=== PATIENT | female | born 1955 | race Caucasian/White ===

== ENCOUNTER 2018-02-14 12:18 | Emergency (ER) | payer BC ==
[~2018-02-14] VITALS: Ht 167.6 cm; Wt 98.7 kg
[2018-02-14 12:20] VITALS: TEMP 37; Ht 167.6 cm; Wt 98.7 kg
[2018-02-14] MEDS ORDERED: ONDANSETRON INJ 2 MG/ML 2 ML VIAL IV STA (13:02)
[2018-02-14] MEDS ORDERED: KETOROLAC TROMETHAMINE 30 MG/ML VIAL IV STA (13:02)
[2018-02-14] MEDS ORDERED: SODIUM CHLORIDE 0.9% 1000ML 1,000 ML IV STA (13:02)
[2018-02-14] MEDS ORDERED: ASPIRIN 81 MG CHEW PO STA (13:02)
[2018-02-14 13:03] VITALS: O2SAT 99
[2018-02-14 13:14] LABS: BASO % 0.9 %; BASO ABS # 0.07 K/uL (0-0.2); EOS % 2.7 %; EOS ABS # 0.21 K/uL (0-0.5); HEMOGLOBIN 13.8 g/dL (12.0-16.0); IG# 0.01 K/uL (0.00-0.02); LYMPH % 38.6 %; LYMPH ABS # 3.03 K/uL (1.2-3.4); MEAN CELL VOLUME 82.8 fL (80-100); MEAN CORPUSCULAR HEMOGLOBIN 28.6 pg (25-34); MEAN CORPUSCULAR HGB CONC 34.5 g/dl (32-36); MEAN PLATELET VOLUME 9.9 fL (7.4-10.4); MONO % 9.6 %; MONO ABS # 0.75 K/uL (0.11-0.59); NEUT % 48.1 %; NEUT ABS # 3.77 K/uL (1.4-6.5); PLATELET COUNT 238 K/uL (130-400); RED CELL DISTRIBUTION WIDTH CV 12.9 % (11.5-14.5); RED CELL DISTRIBUTION WIDTH SD 39.2 fL (36.4-46.3); WHITE BLOOD COUNT 7.84 K/uL (4.8-10.8)
[2018-02-14] MEDS ORDERED: LIRA18IN SQ (13:18)
[2018-02-14] MEDS ORDERED: ATOR10TA82 PO (13:18)
[2018-02-14] MEDS ORDERED: CITA20TA9 PO (13:18)
[2018-02-14] MEDS ORDERED: NXM/40 PO (13:18)
[2018-02-14] MEDS ORDERED: LOSA100T65 PO (13:18)
[2018-02-14] MEDS ORDERED: CANA1TAB3 PO (13:18)
[2018-02-14] MEDS ORDERED: METF-384 PO (13:18)
[2018-02-14] MEDS ORDERED: NRV/10 PO (13:18)
[2018-02-14 13:28] LABS: ALBUMIN 4.1 gm/dl (3.4-5.0); ALT/SGPT 38 U/L (12-78); AST/SGOT 20 U/L (15-37); BLOOD UREA NITROGEN 16 mg/dl (7-18); CALCIUM 9.7 mg/dl (8.5-10.1); CARBON DIOXIDE 26 mmol/L (21-32); CREATININE 0.75 mg/dl (0.60-1.20); GLUCOSE 91 mg/dl (70-99); POTASSIUM 3.9 mmol/L (3.5-5.1); SODIUM 138 mmol/L (136-145)
[2018-02-14 13:29] LABS: PTT PATIENT 25.4 SECONDS (21.0-31.0)
[2018-02-14 13:39] LABS: ALKALINE PHOSPHATASE 64 U/L (45-117); TOTAL PROTEIN 8.2 gm/dl (6.4-8.2)
--- NOTE | 2018-02-14 13:52 | DIAGNOSTIC IMAGING REPORT ---
CHEST ONE VIEW PORTABLE CLINICAL HISTORY: 62 years-old Female presenting with EVALUATE ALTERED MENTAL STATUS/WEAKNESS, loss of consciousness, tachycardia. TECHNIQUE: Portable upright AP view of the chest was obtained. COMPARISON: None. FINDINGS: Atherosclerosis of the aortic arch. Cardiac silhouette normal in size. No focal opacity. No large effusion or pneumothorax. Osseous structures normal. IMPRESSION: 1. No acute cardiopulmonary disease. Electronically signed by: Jorden Sterling M.D. 02/14/2018 1:50 PM Dictated Date/Time: 02/14/2018 1:50 PM
[2018-02-14 17:20] VITALS: BP 132/74; PULSE 71; O2SAT 99
--- NOTE | 2018-02-14 19:18 | EMERGENCY ROOM VISIT NOTE ---
History Report prepared by Jeanne: Papito Reza Under the Supervision of: Dr. Darrick Bridges D.O. First contact with patient: 12:47 Chief Complaint: SYNCOPE Stated Complaint: BLACKED OUT, FAST HEART RATE, PAIN IN NECK History of Present Illness The patient is a 62 year old female who presents to the Emergency Room with complaints of a near-syncopal episode occurring two hours ago. She states that she was standing at work when she suddenly began feeling lightheaded. She states that she began experiencing heart palpitations and "everything went black ". The patient finally developed a "burning" pain up both sides of her neck, as well as a headache. She estimates that the episode lasted for about 10 minutes. She states that she was found to be tachycardic on scene. The patient has a history of tachycardia, but states that it usually would last few a few seconds at a time. Pt denies LOC, change in vision, numbness, weakness, fevers, chest pain, shortness of breath, abdominal pain, nausea, vomiting, diarrhea, pain with urination, and melena. Patient denies CAD, history of sudden at a young age, and smoking. She has a history of HTN, HLD, and diabetes. Patient denies swelling of calves, recent trips, history of immobilization or recent surgery, prior history of DVT, hemoptysis, history of malignancy, history of smoking, or control/estrogen use. Source of History: patient Onset: two hours ago Symptom Intensity: Episode lasted 10 minutes Quality: other (near syncope) Timing: other (episode) Associated Symptoms: + headache, + neck pain, No fevers, No chest pain, No SOB, No nausea, No vomiting, No abdominal pain, No melena, No diarrhea, No urinary symptoms Note: Positive: heart palpitations, lightheadedness. Negative: visual changes. Review of Systems See HPI for pertinent positives & negatives. A total of 10 systems reviewed and were otherwise negative. Past Medical & Surgical Medical Problems: (1) Diabetes type 2, controlled (2) HLD (hyperlipidemia) (3) HTN (hypertension) Family History No pertinent family history stated. Social History Smoking Status: Former Smoker Occupation Status: employed Current/Historical Medications Scheduled Amlodipine Besylate (Amlodipine Besylate), 10 MG PO DAILY Atorvastatin (Lipitor), 10 MG PO MWF Canagliflozin (Invokana), 300 MG PO DAILY Citalopram Hydrobromide (Celexa), 20 MG PO DAILY Esomeprazole Magnesium (Nexium), 40 MG PO DAILY Liraglutide (Victoza), 1.2 MG SQ DAILY Losartan Potassium (Cozaar), 100 MG PO DAILY Metformin Hcl (Glucophage), 1,000 MG PO BID Physical Exam Vital Signs Date Time Temp Pulse Resp B/P (MAP) Pulse Ox O2 Delivery O2 Flow Rate FiO2 02/14/18 17:20 71 18 132/74 99 Room Air 02/14/18 16:23 76 18 140/80 96 Room Air 02/14/18 13:57 71 18 132/86 96 Room Air 02/14/18 13:46 76 02/14/18 13:11 79 22 131/82 99 Room Air 83 135/81 85 130/89 02/14/18 13:03 99 Room Air 02/14/18 12:20 37.0 94 20 160/90 97 Room Air Physical Exam GENERAL: Sitting up in bed, alert, well appearing, well nourished, no distress, non-toxic EYE EXAM: normal conjunctiva. PERRL and EOM's intact. OROPHARYNX: no exudate, no erythema, lips, buccal mucosa, and tongue normal and mucous membranes are moist NECK: supple, no nuchal rigidity, no adenopathy, non-tender LUNGS: Clear to auscultation. Normal chest wall mechanics HEART: no murmurs, S1 normal and S2 normal ABDOMEN: abdomen soft, non-tender, normo-active bowel sounds, no masses, no rebound or guarding. BACK: Back is symmetrical on inspection and there is no deformity, no midline tenderness, no CVA tenderness. SKIN: no rashes and no bruising UPPER EXTREMITIES: upper extremities are grossly normal. LOWER EXTREMITIES: No pitting edema. NEURO EXAM: Normal sensorium, cranial nerves II-XII intact, normal speech, no weakness of arms, no weakness of legs. No drift. Finger to nose intact. Gross sensation intact. Medical Decision & Procedures ER Provider Diagnostic Interpretation: Radiology results as stated below per my review and the radiologist's interpretation: CHEST ONE VIEW PORTABLE FINDINGS: Atherosclerosis of the aortic arch. Cardiac silhouette normal in size. No focal opacity. No large effusion or pneumothorax. Osseous structures normal. IMPRESSION: 1. No acute cardiopulmonary disease. Electronically signed by: Jorden Sterling M.D. 02/14/2018 1:50 PM Laboratory Results 02/14/18 13:00 Red Blood Count 4.83, Mean Corpuscular Volume 82.8, Mean Corpuscular Hemoglobin 28.6, Mean Corpuscular Hemoglobin Concent 34.5, Mean Platelet Volume 9.9, Neutrophils (%) (Auto) 48.1, Lymphocytes (%) (Auto) 38.6, Monocytes (%) (Auto) 9.6, Eosinophils (%) (Auto) 2.7, Basophils (%) (Auto) 0.9, Neutrophils # (Auto) 3.77, Lymphocytes # (Auto) 3.03, Monocytes # (Auto) 0.75, Eosinophils # (Auto) 0.21, Basophils # (Auto) 0.07 02/14/18 13:00 Test 02/14/18 13:00 02/14/18 13:08 02/14/18 13:25 02/14/18 15:51 White Blood Count 7.84 K/uL (4.8-10.8) Red Blood Count 4.83 M/uL (4.2-5.4) Hemoglobin 13.8 g/dL (12.0-16.0) Hematocrit 40.0 % (37-47) Mean Corpuscular Volume 82.8 fL (80-100) Mean Corpuscular Hemoglobin 28.6 pg (25-34) Mean Corpuscular Hemoglobin Concent 34.5 g/dl (32-36) Platelet Count 238 K/uL (130-400) Mean Platelet Volume 9.9 fL (7.4-10.4) Neutrophils (%) (Auto) 48.1 % Lymphocytes (%) (Auto) 38.6 % Monocytes (%) (Auto) 9.6 % Eosinophils (%) (Auto) 2.7 % Basophils (%) (Auto) 0.9 % Neutrophils # (Auto) 3.77 K/uL (1.4-6.5) Lymphocytes # (Auto) 3.03 K/uL (1.2-3.4) Monocytes # (Auto) 0.75 K/uL (0.11-0.59) Eosinophils # (Auto) 0.21 K/uL (0-0.5) Basophils # (Auto) 0.07 K/uL (0-0.2) RDW Standard Deviation 39.2 fL (36.4-46.3) RDW Coefficient of Variation 12.9 % (11.5-14.5) Immature Granulocyte % (Auto) 0.1 % Immature Granulocyte # (Auto) 0.01 K/uL (0.00-0.02) Prothrombin Time 10.3 SECONDS (9.0-12.0) Prothromb Time International Ratio 1.0 (0.9-1.1) Activated Partial Thromboplast Time 25.4 SECONDS (21.0-31.0) Partial Thromboplastin Ratio 1.0 D-Dimer 470 ug/L FEU (0-500) Anion Gap 7.0 mmol/L (3-11) Est Creatinine Clear Calc Drug Dose 92.1 ml/min Estimated GFR () 99.0 Estimated GFR (Non- 85.4 BUN/Creatinine Ratio 20.8 (10-20) Calcium Level 9.7 mg/dl (8.5-10.1) Total Bilirubin 0.4 mg/dl (0.2-1) Direct Bilirubin 0.1 mg/dl (0-0.2) Aspartate Amino Transf (AST/SGOT) 20 U/L (15-37) Alanine Aminotransferase (ALT/SGPT) 38 U/L (12-78) Alkaline Phosphatase 64 U/L (45-117) Total Protein 8.2 gm/dl (6.4-8.2) Albumin 4.1 gm/dl (3.4-5.0) Thyroid Stimulating Hormone (TSH) 0.957 uIu/ml (0.300-4.500) Bedside Glucose 86 mg/dl (70-90) Urine Color YELLOW Urine Appearance CLEAR (CLEAR) Urine pH 7.5 (4.5-7.5) Urine Specific [place] 1.014 (1.000-1.030) Urine Protein NEG (NEG) Urine Glucose (UA) 3+ (NEG) Urine Ketones NEG (NEG) Urine Occult Blood NEG (NEG) Urine Nitrite NEG (NEG) Urine Bilirubin NEG (NEG) Urine Urobilinogen NEG (NEG) Urine Leukocyte Esterase NEG (NEG) Troponin I < 0.015 ng/ml (0-0.045) Laboratory results per my review. Medications Administered Medications (Trade) Dose Ordered Sig/Quin Route Start Time Stop Time Status Last Admin Dose Admin Sodium Chloride 1,000 ml @ 999 mls/hr Q1H1M STAT IV 02/14/18 13:02 02/14/18 14:02 DC 02/14/18 13:23 999 MLS/HR Ondansetron HCl (Zofran Inj) 4 mg NOW STAT IV 02/14/18 13:02 02/14/18 13:05 DC 02/14/18 13:24 4 MG Aspirin (Aspirin Chew) 324 mg NOW STAT PO 02/14/18 13:02 02/14/18 13:05 DC 02/14/18 13:24 324 MG Ketorolac Tromethamine (Toradol Inj) 30 mg NOW STAT IV 02/14/18 13:02 02/14/18 13:05 DC 02/14/18 13:24 30 MG ECG Per My Interpretation Indication: syncope (near) Rate (beats per minute): 88 Rhythm: sinus rhythm Findings: other (Normal axis. No PVCs. ) ED Course ED COURSE: Vital signs were reviewed and showed hypertension. The patients medical record was reviewed The above diagnostic studies were performed and reviewed. ED treatments and interventions as stated above. 1256: The patient was evaluated in room C10. A complete history and physical examination was performed. 1302: Ordered Toradol Inj 30 mg IV, Aspirin Chew 324 mg PO, Zofran Inj 4 mg IV, Sodium Chloride 1000 ml @ 999 mls/hr IV. 1706: Upon reevaluation, the patient is resting comfortably. I discussed my findings with the patient and she understands and agrees with the treatment plan. Based on the patients age, coexisting illnesses, exam and lab findings the decision to treat as an outpatient was made. The patient remained stable while under my care. The patient appeared well at the time of discharge. Medical Decision Differential diagnosis includes etiologies such as benign positional vertigo, dehydration, hypovolemia, anemia, tumor, infection, hypoglycemia, electrolyte abnormalities, cardiac sources, intracerebral event, toxicologic, neurologic, as well as others were entertained. Patient is a 62-year-old female who presents the ER for feeling lightheaded, and dizzy along with her vision going black and almost passing out. She never fell. Following this she did have some tightness in the upper portion of her neck. She denies any chest pain or shortness of breath. She is completely neurologically intact. CBC along with BMP, LFTs, bilirubin and TSH was unremarkable. Troponins were negative 2. UA was negative. D-dimer was negative. EKG was unremarkable. Patient was completely symptomatic while in the ER. She was given fluids and felt significantly better. Uncertain of the true etiology of this near syncopal episode at this time. There is no arrhythmias called while in the ER. Patient was updated at bedside. She was discharged follow-up with PCP as outpatient. Discussed with Pt concerning signs and symptoms to watch out for. Pt was instructed to follow up with their PCP and discussed with the patient their option to return to the ED at anytime for persistent or worsening symptoms. The appropriate anticipatory guidance and out- patient management, including indications for return to the emergency department , were explained at length to the patient and understood. Medication Reconcilliation Current Medication List: was personally reviewed by me Blood Pressure Screening Patient's blood pressure: Elevated blood pressure Blood pressure disposition: Elevated BP felt to be situational Impression Primary Impression: Near syncope Scribe Attestation The scribe's documentation has been prepared under my direction and personally reviewed by me in its entirety. I confirm that the note above accurately reflects all work, treatment, procedures, and medical decision making performed by me. Departure Information Dispostion Home / Self-Care Forms HOME CARE DOCUMENTATION FORM, IMPORTANT VISIT INFORMATION Patient Instructions ED Near Syncope Unkn, My [facility] Additional Instructions Please follow up with your primary care doctor with in the next 24 hours. Any worsening of your symptoms, please return to the ED immediately. This includes any fevers greater than 100.4, worsening pain, chest pain, shortness breath, persistent nausea, vomiting, unable to eat or drink, or any other concerning signs or symptoms from your standpoint.
== END 2018-02-14 17:37 | disposition home or self-care (01) ==
LOC: C.EDB 12:20 → C.EDC 17:37
DX: R55 Syncope and collapse (principal); E11.9 Type 2 diabetes mellitus without complications; E78.5 Hyperlipidemia, unspecified; I10 Essential (primary) hypertension; Z87.891 Personal history of nicotine dependence

== ENCOUNTER 2022-11-01 06:06 | Observation (INO) ==
--- NOTE | 2022-10-04 12:07 | PAT Medication Instructions ---
Medication Instructions Date of Service October 04, 2022 Home Medications aspirin 81 mg tablet,delayed release (Adult Low Dose Aspirin) 81 mg PO QAM atorvastatin 10 mg tablet 20 mg PO HS buspirone 15 mg tablet 15 mg PO QAM cholecalciferol (vitamin D3) 125 mcg (5,000 unit) capsule 5,000 units PO HS cinnamon bark 500 mg capsule (Cinnamon) 500 mg PO HS citalopram 20 mg tablet 20 mg PO QAM esomeprazole magnesium 40 mg granules delayed release for susp 40 mg PO HS liraglutide 0.6 mg/0.1 mL (18 mg/3 mL) subcutaneous pen injector (Victoza 3-Tariq) 18 mg subcut QAM losartan 100 mg tablet 100 mg PO HS metoprolol tartrate 25 mg tablet 25 mg PO BID multivitamin (Multiple Vitamins tablet) 1 tab PO HS sitagliptin phosphate 50 mg tablet (Januvia) 50 mg PO BID amlodipine 10 mg tablet 10 mg PO HS vitamin B complex 1 tab PO HS ASK your prescriber and surgeon aspirin 81 mg tablet,delayed release (Adult Low Dose Aspirin) 81 mg PO QAM STOP taking 2 weeks before surgery cinnamon bark 500 mg capsule (Cinnamon) 500 mg PO HS DO NOT take the morning of surgery liraglutide 0.6 mg/0.1 mL (18 mg/3 mL) subcutaneous pen injector (Victoza 3-Tariq) 18 mg subcut QAM sitagliptin phosphate 50 mg tablet (Januvia) 50 mg PO BID Take morning of surgery With a small sip of water, OTHERWISE NOTHING TO EAT OR DRINK AFTER MIDNIGHT: buspirone 15 mg tablet 15 mg PO QAM citalopram 20 mg tablet 20 mg PO QAM metoprolol tartrate 25 mg tablet 25 mg PO BID Take evening before surgery atorvastatin 10 mg tablet 20 mg PO HS cholecalciferol (vitamin D3) 125 mcg (5,000 unit) capsule 5,000 units PO HS esomeprazole magnesium 40 mg granules delayed release for susp 40 mg PO HS losartan 100 mg tablet 100 mg PO HS metoprolol tartrate 25 mg tablet 25 mg PO BID multivitamin (Multiple Vitamins tablet) 1 tab PO HS sitagliptin phosphate 50 mg tablet (Januvia) 50 mg PO BID amlodipine 10 mg tablet 10 mg PO HS vitamin B complex 1 tab PO HS Other Notes If you have any questions please call us at [phone] or [phone] or [phone] or [phone]
--- NOTE | 2022-10-10 09:24 | Anesthesiology Consultation ---
Date of Service October 10, 2022 Assessment & Plan (1) Encounter for pre-operative examination: Chart Review Chart Review: Acceptable Risk for Surgery (pending UA results, PCP clearance (10/22/22), cardio clearance (had done last week) and 05/2021 stress test ) Awaiting UA. [facility]- will take urine specimen to [place] Awaiting PCP clearance (10/22/22) and cardio clearance ([facility]- appt last week) (Please fax for stress test results from 06/01/21) - Check BSG AM DOS Per [facility] appt on 10/10/22, patient denies any recent travel or large group activities. Cough and congestion x 2 weeks- improving. No Covid testing done previously- [facility] negative. Pt is vaccinated for Covid. Educated on importance of using Covid precautions one week prior to surgery History Surgery Operation Date: 11/01/22 12:55 Proposed Procedures p C4-5 Anterior Cervical Disectomy and Fusion, C6 Corpectomy, Spinal Cord Monitoring - Kwame Crowder, Height/Weight Height: 5 ft 6 in Weight: 109.5 kg Allergies Allergy/AdvReac Type Severity Reaction Status Date / Time glipizide AdvReac Unknown "unsure of Verified 09/30/22 15:17 reaction" hydrochlorothiazide AdvReac Unknown "unsure of Verified 09/30/22 15:17 reaction" meloxicam AdvReac Unknown "unsure of Verified 09/30/22 15:17 reaction" Medications Home Medications Medication Instructions Recorded Confirmed Last Taken aspirin 81 mg tablet,delayed 81 mg PO QAM 09/13/19 09/30/22 Unknown release (Adult Low Dose Aspirin) atorvastatin 10 mg tablet 20 mg PO HS 09/13/19 09/30/22 Unknown buspirone 15 mg tablet 15 mg PO QAM 09/13/19 09/30/22 Unknown cholecalciferol (vitamin D3) 125 5,000 units PO HS 09/13/19 09/30/22 Unknown mcg (5,000 unit) capsule cinnamon bark 500 mg capsule 500 mg PO HS 09/13/19 09/30/22 Unknown (Cinnamon) citalopram 20 mg tablet 20 mg PO QAM 09/13/19 09/30/22 Unknown esomeprazole magnesium 40 mg 40 mg PO HS 09/13/19 09/30/22 Unknown granules delayed release for susp liraglutide 0.6 mg/0.1 mL (18 mg/3 18 mg subcut QAM 09/13/19 09/30/22 Unknown mL) subcutaneous pen injector (Victoza 3-Tariq) losartan 100 mg tablet 100 mg PO HS 09/13/19 09/30/22 Unknown metoprolol tartrate 25 mg tablet 25 mg PO BID 09/13/19 09/30/22 Unknown multivitamin (Multiple Vitamins 1 tab PO HS 09/13/19 09/30/22 Unknown tablet) sitagliptin phosphate 50 mg tablet 50 mg PO BID 11/18/20 09/30/22 Unknown (Januvia) amlodipine 10 mg tablet 10 mg PO HS 09/30/22 09/30/22 Unknown vitamin B complex 1 tab PO HS 09/30/22 09/30/22 Unknown Past Medical History Medical History (Updated 10/11/22 @ 09:29 by Cici Donohue PA-C) CAD (coronary artery disease) S/p angioplasty and 2 vessel CABG (2018) Cervical radiculopathy Diabetes mellitus, type 2 Glucose elevated currently per patient History of cardiac murmur as a child Resolved during adulthood No murmur noted on 10/10/22 PAT exam History of paroxysmal supraventricular tachycardia Per records Hx of migraines Hyperlipidemia Hypertension Knee arthropathy Myocardial Infarction 2018- s/p angioplasty initial- had CABG next day - follows with [facility] Sleep apnea No device Exercise / Class Metabolic Activity III < 4 Walking/Shop/Light housework (no chest pain or SOB with flat surface ambulation - back/leg pain limits activity ) Past Family History Family History Father Cardiac disorder Diabetes Kidney disease Mother Diabetes Daughter Connective tissue disorder EDS (Mateo-Danlos syndrome) Past Surgical History Surgical History History of coronary artery bypass graft 2018, [facility], double bypass; f/u [facility] Hx of hysterectomy w/removal of one ovary and tube Hx of wisdom tooth extraction S/P appendectomy S/P breast biopsy S/P carpal tunnel release RT S/P section x3 S/P cholecystectomy S/P colonoscopy x2 S/P rotator cuff repair RT Past Anesthesia History No Hx of Anesthesia Complications and No Family Hx of Anesthesia Complications History of PONV No Hx of PONV and No Hx of Motion Sickness Social History Smoking Status: Former smoker Do You Dip or Chew Tobacco: No Smoking End Date: "just here and there as a teenager, none since" Hx Alcohol Use: No Hx Substance Use: No substance use type: does not use Review of Systems Current cough- improving. Recent cold symptoms Reflux- well controlled with meds Patient denies chest pain, shortness of breath, dyspnea on exertion, wheezing, palpitations. No hx of seizures, stroke. No hx of blood clots or blood transfusions Physical Exam Vital Signs VITALS BP 131/79 P 77 TEMP 98.4 SP02 97% RESP 16 Constitutional no acute distress ENMT Mouth: no TMJ clicking Thyromental Distance: < 3.5 Finger Breadths (2.5) Mallampati Class: III Missing molars Crowns to molars Neck + limited neck extension (significant ) Respiratory normal respiratory effort; no respiratory distress Auscultation: lungs clear to auscultation bilaterally; no wheezes Cardiovascular Rate/Rhythm: regular rate and regular rhythm Heart Sounds: no murmur Vessels: no carotid bruit Musculoskeletal Spine: no pain with cervical ROM Extremities: extremities normal to inspection Psychiatric Orientation: alert Lab Results Anesthesia Preop Results Results Anesthesia Widget: WBC 8.95 K/ul (4.8-10.8) 10/10/22 Hgb 13.0 g/dl (12.0-16.0) 10/10/22 Hct 38.3 % (34.1-44.9) 10/10/22 Plt 233 K/uL (130-400) 10/10/22 Na 138 mmol/L (136-145) 10/10/22 K 4.7 mmol/L (3.5-5.1) 10/10/22 Cl 103 mmol/L (98-107) 10/10/22 CO2 24 mmol/L (21-32) 10/10/22 BUN 19 mg/dl (6-23) 10/10/22 Creat 0.81 mg/dl (0.6-1.2) 10/10/22 Glucose Level 204 mg/dl (70-99(Fasting)) H 10/10/22 PT 11.2 Seconds (9.0-12.0) 10/10/22 PTT 27.0 Seconds (21.0-31.0) 10/10/22 INR 1.1 (0.9-1.1) 10/10/22 HA1c 8.3 % (4.5-5.6) H 10/10/22 Blood Type A Negative 10/10/22 Antibody Screen NEGATIVE 10/10/22 Testing Electrocardiogram Date: 10/10/22 Findings: + NSR @ (77bpm) Normal EKG per cardio. Chest X-Ray Date: 10/10/22 Findings: + NAD Echocardiogram Date: 03/26/20 EF: 60% LV Function: normal Other Findings: + diastolic dysfunction (Grade I ); no LVH Valvular Disease: + no significant valvular disease LA mildly dilated Cardiac Catheterization Date: 04/02/18 LAD mid 90% stenosis RCA mid/distal 90% stenosis LCx mid 40% stenosis. (Pt had subsequent CABG) COVID-19 Risk Screen Screening Information COVID-19 Screen Date: 10/10/22 Exposure 21 Days Family/Household +COVID Last 21 Days: No Exposure 10 Days Any COVID Exposure Last 10 Days: No Symptoms Last 10 Days Experienced COVID Sx Last 10 Days: Yes Sx Experienced Last 10 Days: Congestion/Runny Nose and Cough Were You Tested for COVID: No + COVID 0-90 Days COVID + in Last 0-90 Days: No COVID Testing Site COVID-19 Preop/Pre-Procedure Testing Site: [facility] (10/10/22 at PAT appt= negative for Covid ) Risk Plan COVID Risk Plan: Last 10D CoV Sx Patient Education COVID Preop Screening Education Complete: Yes
[~2022-11-01 06:06] MED LIST: ACETAMINOPHEN 500 MG TAB PO SCH; CeleBREX 200 MG CAP PO SCH; GABAPENTIN 300 MG CAP PO SCH; LR 15ML/HR IV SCH; ceFAZolin 2000MG 2,000 MG/15 ML SYR IV SCH
[2022-11-01] MEDS ORDERED: LIDOCAINE 2% 20 MG/ML 5 ML SYR IV ONE (07:08)
[2022-11-01] MEDS ORDERED: PROPOFOL IV EMULSION 10 MG/ML 20 ML VIAL IV ONE ×3 (07:08→09:03)
[2022-11-01] MEDS ORDERED: ONDANSETRON INJ 2 MG/ML 2 ML VIAL ONE (07:08)
[2022-11-01] MEDS ORDERED: fentaNYL citrate 100 MCG/2 ML VIAL ONE ×2 (07:08→08:30)
[2022-11-01] MEDS ORDERED: MIDAZOLAM HCL 1 MG/ML 2ML VIAL ONE (07:08)
[2022-11-01] MEDS ORDERED: ROCURONIUM BROMIDE 10 MG/ML 5 ML VIAL IV ONE ×5 (07:08→08:56)
[2022-11-01] MEDS ORDERED: DEXAMETHASONE SOD INJ 4 MG/ML VIAL ONE (07:08)
[2022-11-01] MEDS ORDERED: ceFAZolin 330 MG/ML 1 GM VIAL ONE (07:12)
[2022-11-01] MEDS ORDERED: BUPIVACAINE/EPINEPHRINE 0.25% 1:200,000 30 ML VIAL ONE (07:12)
--- NOTE | 2022-11-01 07:31 | History & Physical Bridge Note ---
Date of Service November 01, 2022 History & Physical Bridge Note I have examined the patient, reviewed the History & Physical and in the interval since the performance of the History & Physical I have noted the following changes of clinical significance: no changes noted
[2022-11-01] MEDS ORDERED: PROMETHAZINE HCL 12.5 MG in SODIUM CHLORIDE 0.9% 50 ML IV PRN ×2 (07:32→11:14)
[2022-11-01] MEDS ORDERED: ePHEDrine sulfate 50 MG/ML AMP IV PRN (07:32)
[2022-11-01] MEDS ORDERED: HYDROmorphone INJ 1 MG/ML SYRINGE IV PRN ×2 (07:32→11:14)
[2022-11-01] MEDS ORDERED: LABETALOL HCL IV 5 MG/ML 20ML IV PRN (07:32)
[2022-11-01] MEDS ORDERED: FLUMAZENIL 0.1 MG/1 ML 10 ML VIAL IV PRN (07:32)
[2022-11-01] MEDS ORDERED: ATROPINE SULFATE 0.1 MG/ML 10ML SYR IV PRN (07:32)
[2022-11-01] MEDS ORDERED: ONDANSETRON INJ 2 MG/ML 2 ML VIAL IV PRN ×2 (07:32→11:14)
[2022-11-01] MEDS ORDERED: NALOXONE HCL 0.4 MG/1 ML VIAL/CARP IV PRN ×2 (07:32→11:14)
--- NOTE | 2022-11-01 07:32 | History & Physical Report ---
Date of Service November 01, 2022 Assessment & Plan (1) Cervical stenosis of spinal canal: Plan: Anterior cervical discectomy and fusion C4-C5, cervical C6 corpectomy. History of Present Illness Chief Complaint: Neck and arm pain Primary Care Provider: Valentina Ivy This is a 66-year-old female who presents for persistent neck and arm symptoms from course of nonoperative care she is here for surgical invention. Allergies Allergy/AdvReac Type Severity Reaction Status Date / Time glipizide AdvReac Unknown "unsure of Verified 11/01/22 06:31 reaction" hydrochlorothiazide AdvReac Unknown "unsure of Verified 11/01/22 06:31 reaction" meloxicam AdvReac Unknown "unsure of Verified 11/01/22 06:31 reaction" Home Medications Medication Instructions Recorded Confirmed Type aspirin 81 mg tablet,delayed 81 mg PO QAM 09/13/19 11/01/22 History release (Adult Low Dose Aspirin) atorvastatin 10 mg tablet 20 mg PO HS 09/13/19 11/01/22 History buspirone 15 mg tablet 15 mg PO QAM 09/13/19 11/01/22 History cholecalciferol (vitamin D3) 125 5,000 units PO HS 09/13/19 11/01/22 History mcg (5,000 unit) capsule cinnamon bark 500 mg capsule 500 mg PO HS 09/13/19 11/01/22 History (Cinnamon) citalopram 20 mg tablet 20 mg PO QAM 09/13/19 11/01/22 History esomeprazole magnesium 40 mg 40 mg PO HS 09/13/19 11/01/22 History granules delayed release for susp liraglutide 0.6 mg/0.1 mL (18 mg/3 18 mg subcut QAM 09/13/19 11/01/22 History mL) subcutaneous pen injector (Victoza 3-Tariq) losartan 100 mg tablet 100 mg PO HS 09/13/19 11/01/22 History metoprolol tartrate 25 mg tablet 25 mg PO BID 09/13/19 11/01/22 History multivitamin (Multiple Vitamins 1 tab PO HS 09/13/19 11/01/22 History tablet) sitagliptin phosphate 50 mg tablet 50 mg PO BID 11/18/20 11/01/22 History (Januvia) amlodipine 10 mg tablet 10 mg PO HS 09/30/22 11/01/22 History vitamin B complex 1 tab PO HS 09/30/22 11/01/22 History Past Med/Surg History Medical History (Updated 11/01/22 @ 07:32 by Kwame Crowder DO) CAD (coronary artery disease) S/p angioplasty and 2 vessel CABG (2018) Cervical radiculopathy Diabetes mellitus, type 2 Glucose elevated currently per patient History of cardiac murmur as a child Resolved during adulthood No murmur noted on 10/10/22 PAT exam History of paroxysmal supraventricular tachycardia Per records Hx of migraines Hyperlipidemia Hypertension Knee arthropathy Myocardial Infarction 2018- s/p angioplasty initial- had CABG next day - follows with [facility] Sleep apnea No device Surgical History History of coronary artery bypass graft 2018, [facility] [place], double bypass; f/u [facility] Hx of hysterectomy w/removal of one ovary and tube Hx of wisdom tooth extraction S/P appendectomy S/P breast biopsy S/P carpal tunnel release RT S/P section x3 S/P cholecystectomy S/P colonoscopy x2 S/P rotator cuff repair RT Family History Father Cardiac disorder Diabetes Kidney disease Mother Diabetes Daughter Connective tissue disorder EDS (Mateo-Danlos syndrome) Social History Smoking Status: Former smoker Smoking End Date: "just here and there as a teenager, none since"; Second Hand Exposure: No; Do You Dip or Chew Tobacco: No; Tobacco Cessation Education Requested by Patient: No Hx Alcohol Use: Yes Hx Substance Use: No Preferred Language: Latvian Communication Ability: Effective Senior Staff Psychologist Required: No Beliefs That Will Affect Care: None Current Living Situation: Spouse and Family Other Information That Helps Us Care for You: No Feels Safe at Home: Yes Safety Concerns: Feels Safe At This Time Assistive Devices: Glasses Physical Exam Physical Exam: Patient is alert and oriented Heart regular rhythm Lungs clear Results & Data Results & Data ([facility]) Vital Signs (Past 12 Hours) Vital Signs Temp Pulse Resp BP Pulse Ox O2 Del Method 11/01/22 06:25 36.8 C 78 20 125/83 97 Room Air
[2022-11-01] MEDS ORDERED: FLOSEAL HEMOSTATIC MATRIX 10ML TOP ONE (08:31)
[2022-11-01] MEDS ORDERED: GLYCOPYRROLATE 0.2 MG/ML VIAL ONE (08:57)
[2022-11-01] MEDS ORDERED: NEOSTIGMINE METHYLSULFATE 1 MG/ML 10ML VIAL ONE (08:57)
--- NOTE | 2022-11-01 09:42 | Operative Report ---
Post Operative Report Pre & Post Diagnosis Operation Date: 11/01/22 07:45 Pre-Op Diagnosis: Cervical spinal stenosis with myeloradiculopathy Post-Op Diagnosis: Same I identified the patient and participated in the time-out.: Yes Procedure Operation Date: 11/01/22 07:45 Actual Procedures #1 anterior cervical corpectomy with bilateral foraminotomies C6. #2 anterior cervical discectomy with bilateral foraminotomies C4-C5. #3 anterior cervical arthrodesis C4-C5 and C5-C7. #4 placement of peek cage 7 mm in height at C4-C5 and 25 mm in height at C5-C7. #5 placement locally harvested morselized autograft combined with I factor antibody cage. #6 placement of K2 M plate and screws from c 4 to C7. Surgeon Kwame Crowder, Record Retrieval Specialist Maribell Stokes Estimated Blood Loss 10 Findings See Below The patient is 5 foot 6 weighing over 110 kg with a BMI in excess of 38. The patient is body habitus did create significant technical difficulty with positioning exposure at least 50% increased operative time. Specimens None Indications This is a 66-year-old female who presents above-mentioned diagnosis after failing course of nonoperative care she is here for surgical invention. Description of Procedure Patient was met with identified informed consent obtained. Patient was then taken to the operative suite underwent a patient placed in a supine position Rashid table with head Robertson smiley. All bony prominences well-padded eyes inspected to ensure no external pressure placed upon the. This point the anterior cervical spine was prepped and draped in a sterile fashion. The assistance of fluoroscopy identified the C5-C6 disc base and a transverse incision was placed along the right anterior aspect of the cervical spine overlying this region. Blunt dissection with assistance of bipolar cautery was then performed down to and exposing the anterior cervical spine from C4-C7. A self-retaining retractors placed. Then formed a complete discectomy of C5-C6 out to the uncovertebral joints bilaterally followed by C6-C7. [place] distracting pins were then placed and see 5 and see 7 to distract across the C6 vertebral body. A complete corpectomy was then performed including removal of all posterior annular fibers longitudinal ligament bilateral foraminotomies. Endplates burred to subcortical bleeding bone and a 25 mm peek cage filled locally harvested morselized autograft and I factor tapped in position. Then proceeded to the C4-C5 again complete discectomy performed out to the uncovertebral joints bilaterally. [place] distractor pins again utilized for visualization. Removed all posterior annular fibers and longitudinal ligament bilateral foraminotomies performed. Endplates burred to subcortically bone and a 7 mm peek cage filled with I factor and locally harvested morselized autograft tapped in position. Distracting apparatus was removed. All anterior osteophytes produce with cortical surface and a K2 M plate and screws applied with the assistance of fluoroscopy. The incision was then copiously irrigated explored to ensure no damage to surrounding structures remaining bleeding. 10 round LARISA drain inserted. The incision was then closed with 2 Vicryl in the fascia and 4 Monocryl for fascial closure. Steri-Strips dressings placed. Patient waken taken to PACU in stable condition. Please note spinal cord monitoring was utilized at the procedure no changes noted. Lastly Maribell Stokes was present at the entire surgery and while the patient positioning complex portions of the surgery and fascial closure. I attest to the content of the Intraoperative Record and any orders documented therein. Any exceptions are noted below.
[2022-11-01] MEDS: fentaNYL citrate 100 MCG/2 ML VIAL IV PRN ×2 (10:40→10:45)
--- NOTE | 2022-11-01 10:48 | Fluoroscopy Report ---
FL cervical 2-3V CLINICAL HISTORY: C4-C5 ACDF, C6 corpectomy COMPARISON STUDY: None. FLUOROSCOPY TIME: 10 seconds. FINDINGS: 2 fluoroscopic spot images of the cervical spine demonstrate anterior cervical discectomy a nd fusion from C4 through C7 with C6 corpectomy and bone graft. The hardware appears intact. IMPRESSION: Fluoroscopic assistance provided for C4-C7 ACDF. ACT 112: Negative or not required by law. Electronically signed by: Peewee Goncalves M.D. 11/01/2022 10:46 AM
--- NOTE | 2022-11-01 11:07 | Anesthesiology Progress Note ---
Date of Service November 01, 2022 Anesthesia Post Procedure Vital Signs Vital Signs: Temp Pulse Pulse Resp BP Pulse Ox O2 Del Method 11/01/22 11:00 36.4 C L 11/01/22 10:50 74 15 136/67 96 Nasal Cannula 11/01/22 10:40 36.4 C L 75 15 136/67 98 Nasal Cannula 11/01/22 10:30 75 15 143/66 H 97 Nasal Cannula 11/01/22 10:20 72 17 141/72 H 98 Nasal Cannula 11/01/22 10:10 72 16 139/76 98 Nasal Cannula 11/01/22 10:00 71 16 138/75 97 Nasal Cannula 11/01/22 09:51 36.0 C L 79 13 158/86 H 98 Nasal Cannula 11/01/22 06:25 36.8 C 78 20 125/83 97 Room Air O2 Flow Rate 11/01/22 11:00 11/01/22 10:50 2 11/01/22 10:40 2 11/01/22 10:30 4 11/01/22 10:20 4 11/01/22 10:10 4 11/01/22 10:00 4 11/01/22 09:51 4 11/01/22 06:25 Transfer of Care Handoff Completed per policy Notes Mental Status: alert / awake / arousable Patient Amnestic to Procedure: Yes Nausea / Vomiting: adequately controlled Pain: adequately controlled Airway Patency, RR, SpO2: stable & adequate BP & HR: stable & adequate Hydration State: stable & adequate Anesthetic Complications: no major complications apparent
[2022-11-01] MEDS ORDERED: ONDANSETRON 4 MG OD TAB PO PRN (11:14)
[2022-11-01] MEDS ORDERED: bisacodyL 10 MG SUPP PR PRN (11:14)
[2022-11-01] MEDS ORDERED: ALUMINUM/MAGNESIUM SUSP 30 ML UDC PO PRN (11:14)
[2022-11-01] MEDS ORDERED: HYDROmorphone INJ 0.5 MG/0.5 ML SYR IV PRN (11:14)
[2022-11-01] MEDS ORDERED: ACETAMINOPHEN 1,000 MG/100 ML VIAL IV PRN (11:14)
[2022-11-01] MEDS ORDERED: DO NOT ADMINISTER FLU VACCINE PRN (11:14)
[2022-11-01] MEDS ORDERED: oxyCODONE HCL IR 5 MG TAB (IMMEDIATE RELEASE) PO PRN (11:14)
[2022-11-01] MEDS ORDERED: FAMOTIDINE 20 MG TAB PO PRN (11:14)
[2022-11-01] MEDS ORDERED: LORazepam 0.5 MG TAB PO PRN (11:14)
[2022-11-01] MEDS ORDERED: ACETAMINOPHEN 500 MG TAB PO PRN (11:14)
[2022-11-01] MEDS ORDERED: METOCLOPRAMIDE HCL INJ 5 MG/ML 2 ML VIAL IV PRN (11:14)
[2022-11-01] MEDS ORDERED: RACEPINEPHRINE 2.25% NEBU SOLN 0.5 ML VIAL INH PRN (11:14)
[2022-11-01] MEDS ORDERED: DO NOT ADMINISTER PNEUMOCOCCAL VACCINE PRN (11:14)
[2022-11-01] MEDS ORDERED: MAGNESIUM HYDROXIDE SUSP 30 ML UDC PO PRN (11:14)
[2022-11-01] MEDS ORDERED: hydrOXYzine HCl 25 MG TAB PO PRN (11:14)
[2022-11-01] MEDS ORDERED: diphenhydrAMINE Capsule 25 MG CAP PO PRN (11:14)
[2022-11-01] MEDS ORDERED: SOD PHOSPHATE/SOD BIPHOSPHATE ENEMA 132 ML BTL PR PRN (11:14)
[2022-11-01] MEDS ORDERED: LORazepam 0.5 MG in SYRINGE 0 ML IV PRN (11:14)
[2022-11-01] MEDS ORDERED: PHARMACY GLYCEMIC MGMT CONSULT PRN (11:14)
[2022-11-01] MEDS ORDERED: dexAMETHasone 8 MG in SYRINGE 0 ML IV PRN (11:14)
[2022-11-01] MEDS: SODIUM CHLORIDE 0.9% 1000ML 1,000 ML IV SCH ×2 (12:20→19:30)
[2022-11-01] MEDS ORDERED: NovoLIN-N (NPH) PER UNIT CHARGE SQ SCH ×2 (12:30→21:00)
--- NOTE | 2022-11-01 12:40 | Hospitalist Consultation ---
Date of Consultation November 01, 2022 Assessment & Plan (1) Cervical stenosis of spinal canal: - POD #0, EBL 10 cc, no complications. 1 LARISA drain placed. - Pain/ABX/IVF/diet/drain management/transfusion needs/activity per primary team - Rescue Narcan ordered for over sedation PRN - VTE prophylaxis per primary service- SCDs in place - CBC and BMP in AM. - Baseline renal function: Cr 0.81 on 10/10 - Baseline Hgb: 13.0 on 10/10 (2) CAD (coronary artery disease): - Hx of agioploasty and CABG in 2018. Follows with [facility] cardiology. - Continue ASA, statin, metoprolol, amlodipine. - Hold losartan, which she takes in the evening, until POD#1. (3) Diabetes type 2, controlled: - SCHEDULER CONVEYOR--> liraglutide 18 mg qAM, sitagliptin 50 mg BID, both on hold while inpatient. - Pharmacy consulted for glycemic management, basla/bolus insulin ordered. - AM BSG 197. - DM2 diet when tolerating diet. (4) Anxiety: - Continue BuSpar, Celexa. (5) GERD (gastroesophageal reflux disease): - Continue PPI, switch esomeprazole to hospital formulary. - No hx of PUD, GI bleeds. - Has Pepcid ordered prn in addition to PPI. History of Present Illness Reason for Consultation: post op medical management Requesting Physician: Kwame Crowder DO Attending Physician: Kwame Crowder DO History of Present Illness Babita Scott is a 66-year-old female with past medical history significant for CAD s/p CABG in 2018, paroxysmal SVT, DM2, hypertension, hyperlipidemia, anxiety, GERD, chronic back pain who was admitted today, 11/[address] Crowder for persistent neck and arm pain due to cervical stenosis after failing conservative treatment. Hospitalist group was consulted for post-operative medication management. Today, she is POD#0 and feels well. Denies fever/chills, weakness, chest pain, palpitations, shortness of breath, cough, orthopnea, abdominal pain, nausea, vomiting. Allergies Allergy/AdvReac Type Severity Reaction Status Date / Time glipizide AdvReac Unknown "unsure of Verified 11/01/22 06:31 reaction" hydrochlorothiazide AdvReac Unknown "unsure of Verified 11/01/22 06:31 reaction" meloxicam AdvReac Unknown "unsure of Verified 11/01/22 06:31 reaction" Home Medications Medication Instructions Recorded Confirmed Type aspirin 81 mg tablet,delayed 81 mg PO QAM 09/13/19 11/01/22 History release (Adult Low Dose Aspirin) atorvastatin 10 mg tablet 20 mg PO HS 09/13/19 11/01/22 History buspirone 15 mg tablet 15 mg PO QAM 09/13/19 11/01/22 History cholecalciferol (vitamin D3) 125 5,000 units PO HS 09/13/19 11/01/22 History mcg (5,000 unit) capsule cinnamon bark 500 mg capsule 500 mg PO HS 09/13/19 11/01/22 History (Cinnamon) citalopram 20 mg tablet 20 mg PO QAM 09/13/19 11/01/22 History esomeprazole magnesium 40 mg 40 mg PO HS 09/13/19 11/01/22 History granules delayed release for susp liraglutide 0.6 mg/0.1 mL (18 mg/3 18 mg subcut QAM 09/13/19 11/01/22 History mL) subcutaneous pen injector ([employer] Businesstoza 3-Tariq) losartan 100 mg tablet 100 mg PO HS 09/13/19 11/01/22 History metoprolol tartrate 25 mg tablet 25 mg PO BID 09/13/19 11/01/22 History multivitamin (Multiple Vitamins 1 tab PO HS 09/13/19 11/01/22 History tablet) sitagliptin phosphate 50 mg tablet 50 mg PO BID 11/18/20 11/01/22 History (Januvia) amlodipine 10 mg tablet 10 mg PO HS 09/30/22 11/01/22 History vitamin B complex 1 tab PO HS 09/30/22 11/01/22 History oxycodone 5 mg tablet 5 mg PO Q6H PRN pain, severe #30 11/01/22 Rx tabs tramadol 50 mg tablet 50 mg PO Q6H PRN pain, moderate 11/01/22 Rx #30 tabs Patient History Medical History (Updated 11/01/22 @ 12:36 by Leonor Beltran PA-C) CAD (coronary artery disease) S/p angioplasty and 2 vessel CABG (2018) Cervical radiculopathy Diabetes mellitus, type 2 Glucose elevated currently per patient History of cardiac murmur as a child Resolved during adulthood No murmur noted on 10/10/22 PAT exam History of paroxysmal supraventricular tachycardia Per records Hx of migraines Hyperlipidemia Hypertension Knee arthropathy Myocardial Infarction 2018- s/p angioplasty initial- had CABG next day - follows with [facility] Sleep apnea No device Surgical History History of coronary artery bypass graft 2018, [facility] [place], double bypass; f/u [facility] Hx of hysterectomy w/removal of one ovary and tube Hx of wisdom tooth extraction S/P appendectomy S/P breast biopsy S/P carpal tunnel release RT S/P section x3 S/P cholecystectomy S/P colonoscopy x2 S/P rotator cuff repair RT Family History Father Cardiac disorder Diabetes Kidney disease Mother Diabetes Daughter Connective tissue disorder EDS (Mateo-Danlos syndrome) Social History Smoking Status: Former smoker Smoking End Date: "just here and there as a teenager, none since"; Second Hand Exposure: No; Do You Dip or Chew Tobacco: No; Tobacco Cessation Education Requested by Patient: No Hx Alcohol Use: Yes Hx Substance Use: No Preferred Language: Bengali Communication Ability: Effective Bus Person Required: No Beliefs That Will Affect Care: None Current Living Situation: Spouse and Family Other Information That Helps Us Care for You: No Feels Safe at Home: Yes Safety Concerns: Feels Safe At This Time Assistive Devices: Glasses Review of Systems Review of Systems: Constitutional: No fever/chills, weakness, fatigue, myalgias, anorexia, night sweats Eyes: No diplopia, no worsening or blurred vision ENT: normal hearing, no trouble swallowing Respiratory: No cough, sputum, dyspnea at rest or on exertion Cardiovascular: No chest pain, tightness or palpitations Abdomen: No pain, nausea, vomiting, diarrhea or constipation : Denies dysuria, hematuria, increased urgency/frequency, urinary retention Musculoskeletal: No joint pain, calf pain, swelling Neurologic: No weakness, numbness/tingling, or balance problems Psychiatric: No anxiety or depression Skin: No rash or itch Physical Exam Physical Exam: General: awake, alert, no apparent distress Head: Normocephalic, atraumatic ENT: PERRL, EOMI, no pharyngeal exudate, mucous membranes moist Chest: Clear to auscultation, on room air, no adventitious breath sounds Cardiac: Regular rate and rhythm, no murmur, no JVD, normal peripheral pulses, good capillary refill Abdominal: NABS x 4 quadrants, soft, nontender to palpation, no rebound, guarding or tenderness Extremities: Normal inspection, no peripheral edema or erythema, calfs nontender to palpation Psych: Normal mood and affect Neuro: AAO x 3, strength intact bilaterally and rated 5/5, no motor deficits, speech is clear, no peripheral sensory deficits Skin: no rash or erythema Results & Data Results & Data ([facility]) Vital Signs (Past 12 Hours) Vital Signs Temp Pulse Pulse Resp BP BP Pulse Ox 11/01/22 12:21 36.8 C 75 16 131/73 98 11/01/22 11:14 11/01/22 11:44 36.8 C 72 16 121/71 98 11/01/22 11:38 11/01/22 11:17 37 C 75 16 126/70 97 11/01/22 11:00 36.4 C L 11/01/22 10:50 74 15 136/67 96 11/01/22 10:40 36.4 C L 75 15 136/67 98 11/01/22 10:30 75 15 143/66 H 97 11/01/22 10:20 72 17 141/72 H 98 11/01/22 10:10 72 16 139/76 98 11/01/22 10:00 71 16 138/75 97 11/01/22 09:51 36.0 C L 79 13 158/86 H 98 11/01/22 06:25 36.8 C 78 20 125/83 97 Pulse Ox O2 Del Method O2 Del Method O2 Flow Rate O2 Flow Rate 11/01/22 12:21 Nasal Cannula 3 11/01/22 11:14 99 Nasal Cannula 3 11/01/22 11:44 Nasal Cannula 3 11/01/22 11:38 Nasal Cannula 3 11/01/22 11:17 Nasal Cannula 3 11/01/22 11:00 11/01/22 10:50 Nasal Cannula 2 11/01/22 10:40 Nasal Cannula 2 11/01/22 10:30 Nasal Cannula 4 11/01/22 10:20 Nasal Cannula 4 11/01/22 10:10 Nasal Cannula 4 11/01/22 10:00 Nasal Cannula 4 11/01/22 09:51 Nasal Cannula 4 11/01/22 06:25 Room Air Laboratory Results Abnormal lab results 11/01/22 11/01/22 Range/Units 07:27 09:55 POC Glucose 193 H 197 H (70-99) mg/dl Diagnostic Findings Cervical Spine X-Ray 11/01/22 00:00 FL cervical 2-3V CLINICAL HISTORY: C4-C5 ACDF, C6 corpectomy COMPARISON STUDY: None. FLUOROSCOPY TIME: 10 seconds. FINDINGS: 2 fluoroscopic spot images of the cervical spine demonstrate anterior cervical discectomy and fusion from C4 through C7 with C6 corpectomy and bone graft. The hardware appears intact. IMPRESSION: Fluoroscopic assistance provided for C4-C7 ACDF. ACT 112: Negative or not required by law. Electronically signed by: Peewee Goncalves M.D. 11/01/2022 10:46 AM PG Care Time/CCT Total # of Minutes Spent Total Time Spent with Patient: Total time spent is greater than 50% in coordination of care (as documented) at patient's floor/unit and/or counseling patient: Coding Level of Care Code 80528 Inpt Consult Level 3 Diagnoses Cervical stenosis of spinal canal M48.02 CAD (coronary artery disease) I25.10 Diabetes type 2, controlled E11.9 Anxiety F41.9 GERD (gastroesophageal reflux disease) K21.9
[2022-11-01] MEDS: dexAMETHasone 6 MG in SYRINGE 0 ML IV SCH ×2 (13:03→19:32)
[2022-11-01] MEDS: INSULIN ASPART PER UNIT SC SCH ×3 (13:04→21:18)
--- NOTE | 2022-11-01 14:04 | Pharmacy Report ---
Pharmacy Glycemic Short Note 2 - Date of Service November 01, 2022 - Glycemic Short BSG Results (Last 24 hours): 11/01/22 11/01/22 11/01/22 07:27 09:55 13:01 POC Glucose 193 H 197 H 240 H OUTPATIENT ANTIDIABETIC REGIMEN: * Januvia 50 mg PO BID * Victoza 18 mg SQ QAM ASSESSMENT: * 66 y/o F admitted for spinal stenosis and cervical discetomy. Patient has history of Type 2 diabetes managed on oral Januvia and Victoza SQ at home. * Patient was ordered IV dexamethasone 8mg in the OR and ongoing 6 mg IV Q8h x 3doses. This will lead to steroid induced hyperglycemia. * NPH 0.25 units/kg (used adjusted body weight) given with noon dose of Dexamethasone today. * Novolog ordered based on stress of 3. PLAN FOR INPATIENT GLYCEMIC CONTROL: * Hold outpatient oral diabetes medications * Basal insulin * NPH 20 units x1 at 12:30 today. * NPH 0-10 units x1 based on BSG at 21:00 today * Bolus insulin * NovoLog per scale ACHS or Q6hrs while NPO * Goal Range: Low 110 mg/dL - High 140 mg/dL * Correction Factor: 15 mg/dL/unit * Nutritional / Prandial insulin per carb ratio of 1 unit per 5 grams CHO consumed
[2022-11-01] MEDS: ceFAZolin 2000MG 2,000 MG/15 ML SYR IV SCH ×2 (16:05→22:55)
[2022-11-01] MEDS ORDERED: LORazepam 0.5 mg IV INJ IV PRN (16:26)
[2022-11-01] MEDS ORDERED: LOSARTAN POTASSIUM 50 MG TAB PO SCH (21:00)
[2022-11-01] MEDS ORDERED: DOCUSATE SODIUM/SENNA 50/8.6MG TAB PO SCH (21:00)
[2022-11-01] MEDS ORDERED: SITagliptin PHOSPHATE 25 MG TAB PO SCH (21:00)
[2022-11-01] MEDS ORDERED: MULTIVITAMIN TAB PO SCH (21:00)
[2022-11-01] MEDS ORDERED: CHOLECALCIFEROL 5,000 UNITS 125 MCG TAB PO SCH (21:00)
[2022-11-01] MEDS ORDERED: amLODIPine BESYLATE 5 MG TAB PO SCH (21:00)
[2022-11-01] MEDS ORDERED: VITAMIN B COMPLEX TAB PO SCH (21:00)
[2022-11-01] MEDS ORDERED: PANTOprazole 40 MG TAB PO SCH (21:00)
[2022-11-01] MEDS ORDERED: ATORVASTATIN 20 MG TAB PO SCH (21:00)
[2022-11-01] MEDS ORDERED: LANTUS PER UNIT CHARGE SQ ONE (21:00)
[2022-11-01] MEDS: METOPROLOL TARTRATE 25 MG TAB PO SCH (21:21)
[2022-11-02] MEDS: INSULIN ASPART PER UNIT SC SCH ×4 (00:35→12:50)
[2022-11-02] MEDS: SODIUM CHLORIDE 0.9% 1000ML 1,000 ML IV SCH (00:40)
[2022-11-02] MEDS: dexAMETHasone 6 MG in SYRINGE 0 ML IV SCH (04:09)
[2022-11-02] MEDS: POLYETHYLENE (MIRALAX) 17 GM PACK PO SCH ×2 (06:51→12:50)
[2022-11-02 07:04] LABS: Basophils # (auto) 0.02 K/uL (0-0.2); Basophils % (auto) 0.1 %; Hematocrit (blood only) 36.9 % (34.1-44.9); Hemoglobin 12.1 g/dl (12.0-16.0); Immature Granulocytes # (auto) 0.14 K/uL (0.00-0.02); Immature Granulocytes % (auto) 0.9 %; Lymphocytes # (auto) 1.24 K/uL (1.2-3.4); Lymphocytes % (auto) 8.1 %; Mean Corpuscular Hgb Conc 32.8 g/dL (32.0-36.0); Mean Corpuscular Volume 85.4 fL (80.0-100.0); Mean Platelet Volume 10.9 fL (9.4-12.3); Monocytes # (auto) 0.51 K/uL (0.24-0.82); Monocytes % (auto) 3.3 %; Neutrophils # (auto) 13.44 K/uL (1.4-6.5); Neutrophils % (auto) 87.6 %; Platelet Count 185 K/uL (130-400); RDW Coefficient of Variation 12.4 % (11.5-14.5); RDW Standard Deviation 38.5 fL (36.4-46.3); Red Blood Count 4.32 M/uL (3.93-5.22); White Blood Count 15.35 K/ul (4.8-10.8)
[2022-11-02] MEDS: traMADol HCL 50 MG TABLET PO PRN ×2 (07:21→11:30)
[2022-11-02 07:27] LABS: Calcium 8.8 mg/dl (8.5-10.1); Creatinine Clr Calc Pharmacy 115.2 ml/min; Est GFR (African American) 110.1 ml/min; Potassium 4.2 mmol/L (3.5-5.1)
--- NOTE | 2022-11-02 08:24 | Discharge Summary ---
Date of Service November 02, 2022 Admission HPI Per Admitting Provider This is a 66-year-old female who presents for persistent neck and arm symptoms from course of nonoperative care she is here for surgical invention. Admission Exam (Per Admitting) Constitutional well developed Eyes normal visual raymond by confrontation ENMT external ear and nose normal, oropharynx normal Neck normal visual inspection Respiratory normal respiratory effort Cardiovascular Extremities: normal capillary refill Gastrointestinal (Abdomen) Inspection/Auscultation: abdomen normal to inspection Musculoskeletal Spine: + limited cervical ROM Extremities: extremities normal to inspection Skin no rashes, warm and dry Neurologic normal touch/pain/proprioception and moves all extremities Psychiatric A+Ox3, euthymic affect Eye Contact: good eye contact Discharge Data Consultations 11/01/22 11:14 Consult Hospitalist Routine Procedures Performed Operation Date: 11/01/22 07:45 Actual Procedures p C4-C5 Anterior Cervical Disectomy and Fusion, C6 Corpectomy, Spinal Cord Monitoring(Not Applicable) - Kwame Crowder DO Hospital Course (1) Cervical stenosis of spinal canal: Patient is being discharged home on postoperative day 1 status post multilevel cervical fusion. She had an uneventful plan postoperative course. Mild dysphagia. Up and ambulatory and using the restroom without incident. Arm symptoms improved. Discharge Instructions ACTIVITY RECOMMENDATIONS: SELF CARE INSTRUCTIONS AFTER CERVICAL FUSIONS 1. No smoking. Smoking drastically decreases the chance of a solid fusion. 2. No bending, lifting more than 5 pounds, or twisting (roll like a log when turning in bed). 3. You may shower 3 days after surgery. Thoroughly dry wound. Do not soak in the tub. 4. Cervical collar: Must be worn at all times including sleeping. You may remove the brace only to bath, eat and if you are sitting in a recliner. 5. Please walk as much as you can for exercise. Gradually increase the distance that you walk as your endurance increases. SPECIAL CARE INSTRUCTIONS: VERY IMPORTANT TO READ AND REVIEW A. Do not take any anti-inflammatory medications (i.e. Indocin, Advil, Aspirin, Naprosyn, Aleve, Motrin, etc.) as these may inhibit the chance of a solid fusion. Tylenol is okay to take. B. Your surgical incision has been closed with a cosmetic suture under the skin that will dissolve in about 6 weeks. In 14 days, you can use a pair of clean scissors and cut the suture that is left outside of the skin at the ends of your incision. C. Complications are uncommon, but please contact us if you have any signs or symptoms of: 1. wound infection (fever higher than 102.5 degrees F, redness, separation of wound, drainage, or increasing pain from the incision) 2. blood clots in legs (pain, swelling, redness and warmth in legs) 3. urinary tract infection (fever higher than 102.5 degrees, burning upon urination or increased frequency of urination) 4. nerve problems (inability to walk on your toes or heels, numbness, loss of bowel or bladder control) 5. any other symptoms that concern you. D. Please call the office at if you have any concerns or questions about your operation or recovery. MANAGING PAIN AFTER SPINAL SURGERY 1. Narcotic medication is intended for short-term use and will be provided for surgical pain. Surgical pain usually lasts for a period of 4-6 weeks. Narcotic medication includes Percocet, Vicodin, Darvocet, Tylenol #3 or Lortab. 2. Longer-term pain is more appropriately treated with non-narcotic medication such as Tylenol ES. 3. Muscle spasm is not appropriately treated with narcotics. Muscle relaxers such as Soma, Flexeril or Skelaxin can be used along with Tylenol ES. 4. Remember that we all live with some "aches and pains". This is not unusual or uncommon after an injury or as we get older. 5. We will provide appropriate medication within the normal guidelines of their prescribed use. We will also be very cautious and aware of potential abuse and extended duration of patients' medication needs. 6. Please allow 2-3 days to process refills. Prescriptions will not be mailed but must be picked up at the office. FOLLOW UP VISIT: Keep your scheduled follow-up appointment. Any questions, please call the office at .
[2022-11-02] MEDS: METOPROLOL TARTRATE 25 MG TAB PO SCH (08:52)
[2022-11-02] MEDS ORDERED: busPIRone 15 MG TAB PO SCH (09:00)
[2022-11-02] MEDS ORDERED: LANTUS PER UNIT CHARGE SQ SCH ×2 (09:00→21:00)
[2022-11-02] MEDS ORDERED: CITALOPRAM 20 MG TAB PO SCH (09:00)
[2022-11-02] MEDS ORDERED: ASPIRIN 81 MG ECTAB PO SCH (09:00)
--- NOTE | 2022-11-02 12:47 | Pharmacy Report ---
Pharmacy Glycemic Short Note 2 - Date of Service November 02, 2022 - Glycemic Short BSG Results (Last 24 hours): 11/01/22 11/01/22 11/01/22 13:01 17:03 20:31 Glucose POC Glucose 240 H 228 H 319 H* 11/01/22 11/01/22 11/02/22 20:36 20:39 00:15 Glucose POC Glucose 276 H 274 H 191 H 11/02/22 11/02/22 11/02/22 04:04 06:33 08:06 Glucose 200 H POC Glucose 167 H 205 H 11/02/22 12:11 Glucose POC Glucose 208 H OUTPATIENT ANTIDIABETIC REGIMEN: * Januvia 50 mg PO BID * Victoza 18 mg SQ QAM ASSESSMENT: 11/02: * Patient received basal 50 units (20 units of NPH at noon + 30 units of Lantus at HS) and 37 units of bolus Novolog yesterday. * With IV Dexamethasone 6 mg q8h, BSGs were above 200 mg/dl all evening in spite of the NPH dose given around noon yesterday. * Lantus 30 units (~0.4 units/kg) given at HS. BSGs trended down early this morning but fasting BSG was 205 mg/dl. * Lantus 20 units given today AM. Expect effects of Dexamethasone IV to wear off later today since last dose was given around 4 AM. * Novolog parameters loosened with lunch. Additional basal insulin ordered on a scale based on BSG at HS. Background 11/01/22: * 66 y/o F admitted for spinal stenosis and cervical discetomy. Patient has history of Type 2 diabetes managed on oral Januvia and Victoza SQ at home. * Patient was ordered IV dexamethasone 8mg in the OR and ongoing 6 mg IV Q8h x 3doses. This will lead to steroid induced hyperglycemia. * NPH 0.25 units/kg (used adjusted body weight) given with noon dose of Dexamethasone today. * Novolog ordered based on stress of 3. PLAN FOR INPATIENT GLYCEMIC CONTROL: * Hold outpatient oral diabetes medications * Basal insulin * Lantus 20 units SQ x1 this AM * Lantus 15-20 units dose scale based on BSG at HS * Bolus insulin * NovoLog per scale ACHS or Q6hrs while NPO * Goal Range: Low 110 mg/dL - High 140 mg/dL * Correction Factor: 20 mg/dL/unit * Nutritional / Prandial insulin per carb ratio of 1 unit per 6 grams CHO consumed
--- NOTE | 2022-11-02 13:27 | Hospitalist Progress Note ---
Date of Service November 02, 2022 Assessment & Plan (1) Cervical stenosis of spinal canal: Plan: - POD #0, EBL 10 cc, no complications. 1 LARISA drain placed. - Pain/ABX/IVF/diet/drain management/transfusion needs/activity per primary team - Rescue Narcan ordered for over sedation PRN - VTE prophylaxis per primary service- SCDs in place - CBC and BMP in AM. - Baseline renal function: Cr 0.81 on 10/10 - Baseline Hgb: 13.0 on 10/10 (2) CAD (coronary artery disease): Plan: - Hx of agioploasty and CABG in 2018. Follows with [facility] cardiology. - Continue ASA, statin, metoprolol, amlodipine. - Hold losartan, which she takes in the evening, until POD#1. (3) Diabetes type 2, controlled: Plan: - COMMUNICATIONS EDITOR--> liraglutide 18 mg qAM, sitagliptin 50 mg BID, both on hold while inpatient. - Pharmacy consulted for glycemic management, basla/bolus insulin ordered. - AM BSG 197. - DM2 diet when tolerating diet. (4) Anxiety: Plan: - Continue BuSpar, Celexa. (5) GERD (gastroesophageal reflux disease): Plan: - Continue PPI, switch esomeprazole to hospital formulary. - No hx of PUD, GI bleeds. - Has Pepcid ordered prn in addition to PPI. Admission and Anticipated Discharge Date Admission Date: November 01, 2022 Results & Data Results & Data ([facility]) Vital Signs (Past 12 Hours) Vital Signs Temp Pulse Resp BP BP Pulse Ox O2 Del Method 11/02/22 13:12 37.1 C 74 18 132/80 96 Room Air 11/02/22 12:39 75 16 97 Room Air 11/02/22 08:47 79 95 Room Air 11/02/22 07:17 36.6 C 73 18 146/65 H 97 Room Air 11/02/22 05:25 36.9 C 77 18 133/72 98 Nasal Cannula 11/02/22 03:15 36.6 C 74 14 125/71 95 Nasal Cannula 11/02/22 02:49 72 16 98 Nasal Cannula O2 Flow Rate 11/02/22 13:12 11/02/22 12:39 11/02/22 08:47 11/02/22 07:17 11/02/22 05:25 2 11/02/22 03:15 2 11/02/22 02:49 2 PG Care Time/CCT Total # of Minutes Spent Total Time Spent with Patient: Total time spent is greater than 50% in coordination of care (as documented) at patient's floor/unit and/or counseling patient: Coding Diagnoses Cervical stenosis of spinal canal M48.02 CAD (coronary artery disease) I25.10 Diabetes type 2, controlled E11.9 Anxiety F41.9 GERD (gastroesophageal reflux disease) K21.9
[2022-11-02] MEDS ORDERED: guaiFENesin 600 MG TABCR PO ONE (13:30)
[2022-11-02] MEDS ORDERED: IPRATROPIUM BROMIDE NASAL SPRAY 0.06% 15ML NAE ONE (13:43)
[2022-11-02] MEDS ORDERED: FEXOFENADINE HCL 180 MG TAB PO STA (13:44)
[2022-11-02] MEDS ORDERED: LOSARTAN POTASSIUM 50 MG TAB PO SCH (21:00)
== END 2022-11-02 16:26 | disposition home or self-care (01) ==
LOC: ASU 06:06 → 3E 09:46 → INTOOBSV 09:46